=== PATIENT | male | born 1955 | race Caucasian/White ===

== ENCOUNTER → 2017-03-25 | Outpatient (CLI) | payer BC ==
--- NOTE | 2017-03-25 10:09 | XR ---
EXAMINATION TYPE: XR chest 2V DATE OF EXAM: 03/25/2017 COMPARISON: NONE HISTORY: Shortness of breath TECHNIQUE: Frontal and lateral views of the chest are obtained. FINDINGS: Scattered senescent parenchymal changes noted. Hyperinflation compatible with COPD. No evidence for infiltrate. No evidence for atelectasis. Heart size is stable. Mediastinal structures are stable and grossly unremarkable. No evidence for hilar prominence. Degenerative changes dorsal spine. IMPRESSION: 1. No evidence for acute pulmonary disease.
--- NOTE | 2017-03-25 10:10 | XR ---
EXAMINATION TYPE: XR cervical spine limited DATE OF EXAM: 03/25/2017 CLINICAL HISTORY: pain TECHNIQUE: 3 views of the cervical spine are submitted. COMPARISON: None. FINDINGS: There is satisfactory in alignment without evidence of acute fracture or dislocation. The pre-vertebral soft tissue appears within normal limits. Postoperative changes of ACDF at C5-6 and C6 -7 with normal alignment. Anterior fixation plate is in place. Degenerative disc space narrowing and spondylosis at C3-4 and C4-5. IMPRESSION: 1. Degenerative changes as noted. 2. Postoperative change.
--- NOTE | 2017-03-25 10:38 | CT ---
EXAMINATION TYPE: CT soft tissue neck w con DATE OF EXAM: 03/25/2017 HISTORY: Patient complains of a whistling sound in his throat. Worsening since his neck fusion 10 m onths ago. COMPARISON: NONE CT DLP: 832 mGycm. Automated Exposure Control for Dose Reduction was Utilized. TECHNIQUE: CT scan of the neck is performed with IV Contrast, patient injected with 100 mL of Omnipa que 300, axial images are obtained, coronal and sagittal reformatted images are reviewed. FINDINGS: Airway: No gross abnormality seen. No suspicious prevertebral soft tissue swelling is seen. Parotid/submandibular glands: No gross abnormality seen. Carotid/Vascular Structures: There is mild calcified plaque at left carotid bulb. No significant sten osis is evident bilaterally. Osseous Structures: There is anterior fusion plate C5-C7 levels with artificial disc material. Spinal canal is preserved. There is mild to moderate multilevel anterior spurring above and below surgical levels. Other: No suspicious greater than 1 cm neck adenopathy is seen. IMPRESSION: No significant abnormality is seen to account for patient's symptoms. No worrisome infla mmation or abscess identified.
== END | disposition home or self-care (01) ==
LOC: RADCTMAIN 09:29
PROVIDERS: ATTEND Family Medicine
DX: M47.812 Spondylosis without myelopathy or radiculopathy, cervical region (principal); R49.0 Dysphonia; Z98.890 Other specified postprocedural states
CPT/HCPCS: 71020; 72040; 70491; Q9967